=== PATIENT | male | born 1995 | race Caucasian/White ===

== ENCOUNTER 2018-03-10 16:27 | Emergency (ER) | payer BC ==
[~2018-03-10] VITALS: Ht 188 cm; Wt 88.5 kg
[~2018-03-10 16:27] MED LIST: ACETAMINOPHEN-1 EAC1 PO; AMOXICILLIN 50500 MG PO; AMOXICILLIN875 MG PO; CYCLOBENZAPRINE10 MG PO; IBUPROFEN 800800 M1 PO; IBUPROFEN 800800 MG PO; KEFLEX500 M1 PO; LIDOCAINE VISC100 M1 MM; TRAMADOL 50 MG50 MG PO
[2018-03-10 16:31] VITALS: BP 121/66
[2018-03-10] MEDS ORDERED: AMOXICILLIN875 MG PO (16:42)
== END 2018-03-10 16:51 | disposition home or self-care (01) ==
LOC: M.ERS 16:27
DX: J02.9 Acute pharyngitis, unspecified (principal); R11.2 Nausea with vomiting, unspecified; R50.9 Fever, unspecified; F17.210 Nicotine dependence, cigarettes, uncomplicated; Z88.5 Allergy status to narcotic agent

== ENCOUNTER 2018-03-23 20:45 | Emergency (ER) | payer BC ==
[~2018-03-23] VITALS: Ht 185.4 cm; Wt 84.8 kg
[2018-03-23 21:05] VITALS: BP 138/43
[2018-03-23] MEDS ORDERED: NORCO 5-325 TA1 EACH PO (21:11)
== END 2018-03-23 21:17 | disposition home or self-care (01) ==
LOC: M.ERS 20:45
DX: G89.18 Other acute postprocedural pain (principal); M79.641 Pain in right hand; F17.210 Nicotine dependence, cigarettes, uncomplicated; Z88.5 Allergy status to narcotic agent; Z88.6 Allergy status to analgesic agent

== ENCOUNTER 2018-08-26 13:16 | Emergency (ER) | payer BC ==
[~2018-08-26] VITALS: Ht 182.9 cm; Wt 81.7 kg
[~2018-08-26 13:16] MED LIST changes: +NORCO 5-325 TA1 EACH PO
[2018-08-26 13:28] VITALS: BP 120/83
[2018-08-26] MEDS ORDERED: TESSALON PERLE100 MG PO (13:46)
== END 2018-08-26 13:55 | disposition home or self-care (01) ==
LOC: M.ERS 13:16
DX: J02.9 Acute pharyngitis, unspecified (principal); F17.210 Nicotine dependence, cigarettes, uncomplicated; Z88.5 Allergy status to narcotic agent; Z88.6 Allergy status to analgesic agent

== ENCOUNTER 2019-01-27 20:47 | Emergency (ER) | payer BC ==
[~2019-01-27] VITALS: Ht 185.4 cm; Wt 88.5 kg
[~2019-01-27 20:47] MED LIST changes: +TESSALON PERLE100 MG PO
[2019-01-27 21:12] LABS: ABSOLUTE EOSINOPHILS 0.2 thou/uL (0.0-0.7); ABSOLUTE LYMPHOCYTES 2.9 thou/uL (0.8-5.3); ABSOLUTE MONOCYTES 0.4 thou/uL (0.0-1.2); ABSOLUTE NEUTROPHILS 4.3 thou/uL (1.6-8.1); BASOPHILS 0.6 %; EOSINOPHILS 2.6 %; HEMATOCRIT 45.1 % (42.0-52.0); HEMOGLOBIN 15.4 gm/dL (14.0-18.0); LYMPHOCYTES 36.9 %; MCH 30.6 pg (26.0-34.0); MCHC 34.2 g/dL (28.0-37.0); MCV 89.3 fL (80.0-100.0); MONOCYTES 5.5 %; MPV 8.9 fl. (7.2-11.1); NUCLEATED RBCS 0 /100WBC; PLATELET COUNT* 153 thou/uL (150-400); POLYS 54.4 %; RBC 5.05 mil/uL (4.50-6.00); RDW-CV 13.2 % (10.5-14.5); WBC 7.9 thou/uL (4.0-11.0)
[2019-01-27 21:15] LABS: ANION GAP 10 mmol/L (7-16); BUN 18 mg/dL (7-18); CALCIUM 9.5 mg/dL (8.5-10.1); CHLORIDE 105 mmol/L (98-107); CO2 27 mmol/L (21-32); CREATININE 1.2 mg/dL (0.6-1.3); GLUCOSE 87 mg/dL (70-99); POTASSIUM 3.9 mmol/L (3.5-5.1); SODIUM 142 mmol/L (136-145)
[2019-01-27 21:24] LABS: ALBUMIN 4.2 g/dL (3.4-5.0); ALKALINE PHOSPHATASE 74 U/L (46-116); LIPASE 102 U/L (73-393); SGOT 14 U/L (15-37); SGPT 28 U/L (30-65); TOTAL BILIRUBIN 0.4 mg/dL (<0.1-1.0); TOTAL PROTEIN 7.5 g/dL (6.4-8.2); TROPONIN-I LEVEL <0.06 ng/mL (<0.06)
[2019-01-27 21:38] LABS: INR 1.1; PROTIME 11.3 Seconds (9.20-11.50)
[2019-01-27 21:40] LABS: URINE BILIRUBIN NEGATIVE (Negative); URINE BLOOD NEGATIVE (Negative); URINE CLARITY SL CLOUDY; URINE COLOR YELLOW; URINE GLUCOSE-RANDOM NEGATIVE (Negative); URINE KETONES NEGATIVE (Negative); URINE LEUKOCYTES-REFLEX NEGATIVE (Negative); URINE NITRITE-REFLEX NEGATIVE (Negative); URINE PROTEIN NEGATIVE (Negative); URINE UROBILINOGEN 0.2 E.U./dl (0.2-1.0)
[2019-01-27 21:46] LABS: AMP/METHAMP Negative (Negative); BARBITURATES Negative (Negative); BENZODIAZEPINES Negative (Negative); COCAINE Negative (Negative); METHADONE Negative (Negative); OPIATES Negative (Negative); PCP Negative (Negative); THC Negative (Negative)
[2019-01-27 21:47] LABS: SQUAMOUS NONE SEEN /LPF (0-3)
[2019-01-27 21:48] LABS: AMORPHOUS URATES Many /LPF (None Seen); BACTERIA-REFLEX None Seen /HPF (None Seen); CASTS None Seen /LPF (None Seen); MUCUS None Seen strn/LPF (None Seen); URINE RBC None Seen /HPF (0-2); URINE WBC-REFLEX None Seen /HPF (0-5)
[2019-01-27] MEDS ORDERED: TORADOL 10 MG T10 MG PO (22:05)
[2019-01-27 22:24] VITALS: BP 116/61
--- NOTE | 2019-01-28 11:35 | EKG ---
[place] [address] ELECTROCARDIOGRAM REPORT Name: VARGAS FENTON Room: [facility]#: [id number] Admission: 01/27/19 Attend Phys: Discharge: 01/27/19 Date of : [birth year] Report #: [id number] THIS REPORT FOR: //name// [facility] ED Test Date: 2019-01-27 Test Time: 20:50:19 Pat Name: VARGAS SEGOVIALINS Department: Room: Gender: M Mechanic Assistant: : 1995 Requested By: Roasna Khan Order Number: [id number] MD: Henok Zheng Measurements Intervals [place] Rate: 57 P: 63 CA: 185 QRS: 82 QRSD: 87 T: 42 QT: 384 QTc: 374 Interpretive Statements Sinus rhythm ST elev, probable normal early repol pattern No previous ECG available for comparison Electronically Signed On 01-28-2019 11:35:27 CDT by Henok Zheng [email or web address] <ELECTRONICALLY SIGNED> By: Henok Zheng MD, [facility] 01/28/19 [id number] Henok Zheng MD, FACC /EPI
== END 2019-01-27 22:25 | disposition home or self-care (01) ==
LOC: M.ERS 20:47
PROVIDERS: Personal Emergency Response Attendant
DX: R07.89 Other chest pain (principal); F17.210 Nicotine dependence, cigarettes, uncomplicated; Z88.5 Allergy status to narcotic agent; Z88.6 Allergy status to analgesic agent; Z79.899 Other long term (current) drug therapy

== ENCOUNTER 2019-02-10 21:16 | Emergency (ER) | payer BC ==
[~2019-02-10] VITALS: Ht 185.4 cm; Wt 88.5 kg
[~2019-02-10 21:16] MED LIST changes: +TORADOL 10 MG T10 MG PO
[2019-02-10] MEDS ORDERED: HYDROCODON-ACE1 EAC7 PO (22:47)
[2019-02-10 23:07] VITALS: BP 115/62
== END 2019-02-10 23:08 | disposition home or self-care (01) ==
LOC: M.ERS 21:16
DX: G44.009 Cluster headache syndrome, unspecified, not intractable (principal); F17.210 Nicotine dependence, cigarettes, uncomplicated; Z88.6 Allergy status to analgesic agent; Z88.5 Allergy status to narcotic agent

== ENCOUNTER 2019-03-04 19:08 | Emergency (ER) | payer BC ==
[~2019-03-04] VITALS: Ht 185.4 cm; Wt 88.5 kg
[~2019-03-04 19:08] MED LIST changes: +HYDROCODON-ACE1 EAC7 PO
[2019-03-04 19:13] VITALS: BP 139/65
[2019-03-04] MEDS ORDERED: HYDROCODON-ACE1 EAC7 PO (19:23)
[2019-03-04] MEDS ORDERED: PENICILLIN VK500 MG PO (19:23)
== END 2019-03-04 19:30 | disposition home or self-care (01) ==
LOC: M.ERS 19:08
DX: K02.9 Dental caries, unspecified (principal); F17.210 Nicotine dependence, cigarettes, uncomplicated; Z88.6 Allergy status to analgesic agent; Z88.5 Allergy status to narcotic agent

== ENCOUNTER 2019-07-25 20:52 | Emergency (ER) | payer BC ==
[~2019-07-25] VITALS: Ht 185.4 cm; Wt 90.7 kg
[~2019-07-25 20:52] MED LIST changes: +PENICILLIN VK500 MG PO
[2019-07-25] MEDS ORDERED: NORCO 5-325 TA1 EAC1 PO (21:24)
[2019-07-25 21:49] VITALS: BP 131/74
== END 2019-07-25 21:52 | disposition home or self-care (01) ==
LOC: M.ERS 20:52
DX: S93.402A Sprain of unspecified ligament of left ankle, initial encounter (principal); S90.02XA Contusion of left ankle, initial encounter; W17.89XA Other fall from one level to another, initial encounter; Y93.89 Activity, other specified; Y92.89 Other specified places as the place of occurrence of the external cause; Y99.8 Other external cause status

== ENCOUNTER 2019-11-09 22:17 | Emergency (ER) | payer BC ==
[~2019-11-09] VITALS: Ht 182.9 cm; Wt 93.9 kg
[~2019-11-09 22:17] MED LIST changes: +NORCO 5-325 TA1 EAC1 PO
[2019-11-09 23:52] LABS: CALCIUM 8.7 mg/dL (8.5-10.1); CREATININE 1.1 mg/dL (0.6-1.3); MAGNESIUM 1.9 mg/dL (1.8-2.4); POTASSIUM 3.9 mmol/L (3.5-5.1)
[2019-11-09] MEDS ORDERED: BACLOFEN 10MG T10 MG PO (23:57)
[2019-11-10 00:10] VITALS: BP 146/70
== END 2019-11-10 00:10 | disposition home or self-care (01) ==
LOC: M.ERS 22:17
PROVIDERS: Emergency Medicine
DX: G24.5 Blepharospasm (principal); F17.210 Nicotine dependence, cigarettes, uncomplicated; Z88.5 Allergy status to narcotic agent; Z88.6 Allergy status to analgesic agent

== ENCOUNTER 2019-12-11 17:30 | Emergency (ER) | payer BC ==
[~2019-12-11] VITALS: Ht 182.9 cm; Wt 93.0 kg
[~2019-12-11 17:30] MED LIST changes: +BACLOFEN 10MG T10 MG PO
[2019-12-11] MEDS ORDERED: PENICILLIN VK250 MG PO (18:00)
[2019-12-11] MEDS ORDERED: MOBIC7.5 MG PO (18:00)
[2019-12-11 18:17] VITALS: BP 158/90
== END 2019-12-11 18:19 | disposition home or self-care (01) ==
LOC: M.ERS 17:30
DX: K04.7 Periapical abscess without sinus (principal); K02.9 Dental caries, unspecified; F17.210 Nicotine dependence, cigarettes, uncomplicated; Z88.6 Allergy status to analgesic agent

== ENCOUNTER 2020-06-18 19:53 | Emergency (ER) | payer BC ==
[~2020-06-18] VITALS: Ht 182.9 cm; Wt 93.0 kg
[~2020-06-18 19:53] MED LIST changes: +MOBIC7.5 MG PO; +PENICILLIN VK250 MG PO
[2020-06-18] MEDS ORDERED: NORCO 5-325 TA1 EAC2 PO (20:18)
[2020-06-18] MEDS ORDERED: FLEXERIL PO (20:18)
[2020-06-18 20:23] VITALS: BP 147/84
== END 2020-06-18 20:26 | disposition home or self-care (01) ==
LOC: M.ERS 19:53
DX: S39.012A Strain of muscle, fascia and tendon of lower back, initial encounter (principal); F17.210 Nicotine dependence, cigarettes, uncomplicated; Z88.5 Allergy status to narcotic agent; Z88.6 Allergy status to analgesic agent; X50.9XXA Other and unspecified overexertion or strenuous movements or postures, initial encounter; Y93.89 Activity, other specified; Y92.89 Other specified places as the place of occurrence of the external cause; Y99.8 Other external cause status

== ENCOUNTER 2020-08-11 11:43 | Emergency (ER) | payer OTHER ==
[~2020-08-11] VITALS: Ht 182.9 cm; Wt 95.3 kg
[~2020-08-11 11:43] MED LIST changes: +FLEXERIL PO; +NORCO 5-325 TA1 EAC2 PO
[2020-08-11] MEDS ORDERED: HYDROCODON-ACE1 EAC7 PO (12:11)
[2020-08-11] MEDS ORDERED: PENICILLIN V P500 MG PO (12:11)
[2020-08-11] MEDS ORDERED: IBUPROFEN 800800 MG PO (12:11)
[2020-08-11 12:25] VITALS: BP 128/74
== END 2020-08-11 12:26 | disposition home or self-care (01) ==
LOC: M.ERS 11:43
DX: S02.5XXA Fracture of tooth (traumatic), initial encounter for closed fracture (principal); F17.210 Nicotine dependence, cigarettes, uncomplicated; Z88.6 Allergy status to analgesic agent; Z88.5 Allergy status to narcotic agent; X58.XXXA Exposure to other specified factors, initial encounter; Y93.9 Activity, unspecified; Y92.89 Other specified places as the place of occurrence of the external cause; Y99.8 Other external cause status

== ENCOUNTER 2021-03-12 21:24 | Emergency (ER) | payer OTHER ==
[~2021-03-12] VITALS: Ht 182.9 cm; Wt 97.5 kg
[~2021-03-12 21:24] MED LIST changes: +PENICILLIN V P500 MG PO
[2021-03-12 21:59] VITALS: BP 141/85
[2021-03-12] MEDS ORDERED: HYDROCODON-ACE1 EAC8 PO (23:42)
[2021-03-12] MEDS ORDERED: CIPROFLOXACIN500 M1 PO (23:42)
== END 2021-03-12 23:49 | disposition home or self-care (01) ==
LOC: M.ERS 21:24
DX: S91.331A Puncture wound without foreign body, right foot, initial encounter (principal); F17.210 Nicotine dependence, cigarettes, uncomplicated; W22.8XXA Striking against or struck by other objects, initial encounter; Y93.89 Activity, other specified; Y92.89 Other specified places as the place of occurrence of the external cause; Y99.8 Other external cause status; Z88.6 Allergy status to analgesic agent; Z88.5 Allergy status to narcotic agent